=== PATIENT | female | born 1975 | race Caucasian/White ===

== ENCOUNTER → 2018-03-19 | Outpatient (CLI) | payer BC | LOC: MC.RAD 10:23 | DX: Z12.31 Encounter for screening mammogram for malignant neoplasm of breast (principal); N64.89 Other specified disorders of breast ==

== ENCOUNTER → 2018-03-24 | Outpatient (CLI) | payer BC | LOC: MC.RAD 07:29 | DX: N64.89 Other specified disorders of breast (principal) | CPT/HCPCS: G0279 ==

== ENCOUNTER → 2018-08-07 | Outpatient (CLI) | payer BC | LOC: COL.RAD 12:07 | DX: K63.89 Other specified diseases of intestine (principal); M46.96 Unspecified inflammatory spondylopathy, lumbar region; M47.817 Spondylosis without myelopathy or radiculopathy, lumbosacral region; N20.0 Calculus of kidney; Z90.49 Acquired absence of other specified parts of digestive tract | CPT/HCPCS: Q9967 ==

== ENCOUNTER 2020-05-01 06:51 | Emergency (ER) | payer OTHER, BC ==
[~2020-05-01] VITALS: Ht 162.6 cm; Wt 136.4 kg
[2020-05-01 06:54] VITALS: TEMP 97.2
[2020-05-01] MEDS ORDERED: NORCO 325 MG-51 TAB PO (08:08)
[2020-05-01] MEDS ORDERED: MEDROL 4MG DOSPA4 MG PO (08:10)
[2020-05-01 08:15] VITALS: BP 143/85; PULSE 83
== END 2020-05-01 08:19 | disposition home or self-care (01) ==
LOC: COL.ER 06:51
DX: M54.16 Radiculopathy, lumbar region (principal); Z88.0 Allergy status to penicillin; Z88.6 Allergy status to analgesic agent
CPT/HCPCS: J1885; J2360

== ENCOUNTER 2021-08-13 05:31 | Emergency (ER) | payer BC ==
[~2021-08-13] VITALS: Ht 162.6 cm; Wt 136.4 kg
[~2021-08-13 05:31] MED LIST: MEDROL 4MG DOSPA4 MG PO; NORCO 325 MG-51 TAB PO
[2021-08-13 05:43] LABS: COLLECTION METHOD CLEAN CATCH
[2021-08-13 05:50] VITALS: BP 122/118
[2021-08-13] MEDS ORDERED: ROBAXIN 75750 MG/TAB PO (05:50)
[2021-08-13] MEDS ORDERED: MEDROL 4MG DOSPA4 MG PO (05:50)
[2021-08-13 06:00] LABS: PH 5 (5-8); SQUAMOUS EPITHELIAL 0-2 /hpf (0-10); URINE APPEARANCE Clear (CLEAR/HAZY); URINE BACTERIA Rare /hpf (NONE SEEN); URINE BILIRUBIN Negative (NEGATIVE); URINE BLOOD Negative (NEGATIVE); URINE COLOR Yellow (YELLOW); URINE GLUCOSE Negative (NEGATIVE); URINE KETONE Negative (NEGATIVE); URINE LEUKOCYTE ESTERASE Negative (NEGATIVE); URINE NITRATE Negative (NEGATIVE); URINE PROTEIN(semi-quant) Negative (NEGATIVE); URINE RBC 0-2 /hpf (0-2); URINE UROBILINOGEN Negative (NEGATIVE)
[2021-08-13 06:30] VITALS: PULSE 90
== END 2021-08-13 06:30 | disposition home or self-care (01) ==
LOC: COL.ER 05:31
PROVIDERS: Emergency Medicine
DX: M54.16 Radiculopathy, lumbar region (principal); G89.29 Other chronic pain; Z32.02 Encounter for pregnancy test, result negative
CPT/HCPCS: J1885

== ENCOUNTER 2022-07-16 07:35 | Outpatient (CLI) | payer BC ==
[2022-07-16] VITALS (7 sets, daily range): BP systolic 153–167; BP diastolic 95–121; PULSE 71–80; TEMP 98–98.5
[~2022-07-16] VITALS: Ht 162.6 cm; Wt 133.4 kg
[~2022-07-16 07:35] MED LIST changes: +AZULFIDINE500 MG/TAB PO; +FLEXERIL 1010 MG/TAB PO; +FOLIC ACID 11 MG/TA1 PO; +HCTZ12.5TAB PO; +METHOTREXA2.5 MG/TAB PO; +PRIL40 PO; +PROZAC 10MG10 MG PO; +RELAFEN 50500 MG/TAB PO; +ROBAXIN 75750 MG/TAB PO; +SINGULAIR 110 MG/TAB PO; +SYNTHROID0.112 MG/T PO; +TOPROL XL 50MG50 MG PO; +VITAMIND3 5000 PO
[2022-07-16 08:19] LABS: BASO % 0.5 % (0.0-2.0); EOS % 0.8 % (0.0-4.0); GRAN # 1.7 K/mm3 (1.4-6.5); GRAN % 45.4 % (42.2-75.2); HEMOGLOBIN 12.5 g/dl (12.5-16.0); LYMPH # 1.7 K/mm3 (1.2-3.4); LYMPH % 44.1 % (20.0-51.0); MEAN CELL VOLUME 86 fl (80.0-100.0); MEAN CORPUSCULAR HEMOGLOBIN 28 pg (27-31); MEAN CORPUSCULAR HGB CONC 33 g/dl (33.0-37.0); MEAN PLATELET VOLUME 9.6 fl (7.4-10.4); MONO # 0.3 K/mm3 (0.1-0.6); MONO % 8.9 % (1.7-9.3); PLATELET COUNT 244 K/mm3 (130-400); RED BLOOD COUNT 4.44 M/mm3 (4.10-5.30); REDCELL DISTRIBUTION WIDTH-CV 14.9 % (11.5-14.5)
[2022-07-16] MEDS ORDERED: INFLECTRA100 MG IV (11:18)
--- NOTE | 2022-07-16 11:23 | NUR ---
Pt tolerated infusion well. She is aware of elevated blood pressure readings throughout her time in [place]. She states she is monitoring with PCP. IV DC'd, site wrapped with coban. She exits dept with steady gait.
== END 2022-07-16 11:24 | disposition home or self-care (01) ==
LOC: EUO 07:35
PROVIDERS: Student in an Organized Health Care Education/Training Program
DX: M05.79 Rheumatoid arthritis with rheumatoid factor of multiple sites without organ or systems involvement (principal)
CPT/HCPCS: J1200; J2930; J7050; Q5103

== ENCOUNTER 2023-05-02 12:44 | Outpatient (CLI) | payer OTHER ==
[~2023-05-02 12:44] MED LIST changes: +INFLECTRA100 MG IV
[2023-05-02 13:10] LABS: BASO % 0.7 % (0.0-2.0); EOS % 0.9 % (0.0-4.0); GRAN # 2.3 K/mm3 (1.4-6.5); GRAN % 51.8 % (42.2-75.2); HEMATOCRIT 39.6 % (37.0-47.0); HEMOGLOBIN 13.1 g/dl (12.5-16.0); LYMPH # 1.4 K/mm3 (1.2-3.4); LYMPH % 31.7 % (20.0-51.0); MEAN CELL VOLUME 84 fl (80.0-100.0); MEAN CORPUSCULAR HEMOGLOBIN 28 pg (27-31); MEAN CORPUSCULAR HGB CONC 33 g/dl (33.0-37.0); MEAN PLATELET VOLUME 9.3 fl (7.4-10.4); MONO # 0.7 K/mm3 (0.1-0.6); MONO % 14.7 % (1.7-9.3); PLATELET COUNT 264 K/mm3 (130-400); RED BLOOD COUNT 4.69 M/mm3 (4.10-5.30); REDCELL DISTRIBUTION WIDTH-CV 16.2 % (11.5-14.5)
[2023-05-02 13:33] LABS: ALBUMIN 3.9 gm/dL (3.5-5.0); BILIRUBIN,TOTAL 0.3 mg/dL (0.2-1.2); C-REACTIVE PROTEIN 2.04 mg/dL (0.00-0.50); CALCIUM 9.9 mg/dL (8.4-10.2); CREATININE, serum 0.93 mg/dL (0.57-1.11); POTASSIUM 3.9 mmol/L (3.5-4.5)
[2023-05-02 13:43] LABS: ERYTHROCYTE SEDIMENTATION RATE 29 mm/hr (0-20)
[2023-05-02 13:53] LABS: BILIRUBIN,DIRECT 0.1 mg/dL (0.0-0.5)
[2023-05-02 14:02] VITALS: BP 139/84; PULSE 83; TEMP 99
[2023-05-02] MEDS ORDERED: Loratadine 10 MG TAB PO ONE (14:30)
[2023-05-02] MEDS ORDERED: methylPREDNISolone Sod Succ 125 MG/2 ML VIAL IV ONE (14:30)
[2023-05-02] MEDS ORDERED: Acetaminophen 325 MG TAB PO ONE (14:30)
[2023-05-02] MEDS ORDERED: NS IV ONE (15:00)
[2023-05-02] MEDS ORDERED: INFLIXIMAB DYYB IV ONE (15:00)
[2023-05-02 15:30] VITALS: BP 140/87; PULSE 78
[2023-05-02 16:00] VITALS: BP 155/90; PULSE 84
[2023-05-02 16:30] VITALS: BP 159/88; PULSE 83
[2023-05-02 17:00] VITALS: BP 143/86; PULSE 86; TEMP 99.2
--- NOTE | 2023-05-02 17:05 | NUR ---
Report given to EFE Cody who will take over monitoring of pt during completion of infusion. Pt has tolerated well to this point, and remains free of complaints. Ice chips provided per pt request. Call light in reach. She denies further needs at this time.
[2023-05-02 17:20] VITALS: BP 150/97; PULSE 74
== END 2023-05-02 17:27 | disposition home or self-care (01) ==
LOC: EUO 12:44
PROVIDERS: Family Medicine
DX: M05.79 Rheumatoid arthritis with rheumatoid factor of multiple sites without organ or systems involvement (principal)
CPT/HCPCS: J2930; J7050; Q5103

== ENCOUNTER 2023-12-05 11:09 | Outpatient (CLI) | payer OTHER ==
[~2023-12-05] VITALS: Ht 162.6 cm; Wt 129.0 kg
[~2023-12-05 11:09] MED LIST changes: +DESYREL 100MG100 MG PO
[2023-12-05 12:21] VITALS: BP 163/100; PULSE 72; TEMP 98.7
[2023-12-05 12:37] LABS: BASO % 0.2 % (0.0-2.0); GRAN # 4.3 K/mm3 (1.4-6.5); GRAN % 79.8 % (42.2-75.2); HEMOGLOBIN 11.9 g/dl (12.5-16.0); LYMPH # 0.7 K/mm3 (1.2-3.4); LYMPH % 13.6 % (20.0-51.0); MEAN CELL VOLUME 85 fl (80.0-100.0); MEAN CORPUSCULAR HEMOGLOBIN 28 pg (27-31); MEAN CORPUSCULAR HGB CONC 33 g/dl (33.0-37.0); MEAN PLATELET VOLUME 9.2 fl (7.4-10.4); MONO # 0.3 K/mm3 (0.1-0.6); MONO % 5.8 % (1.7-9.3); PLATELET COUNT 218 K/mm3 (130-400); RED BLOOD COUNT 4.22 M/mm3 (4.10-5.30); REDCELL DISTRIBUTION WIDTH-CV 14.6 % (11.5-14.5)
[2023-12-05 12:42] LABS: ERYTHROCYTE SEDIMENTATION RATE 42 mm/hr (0-20)
[2023-12-05 12:54] LABS: ALBUMIN 3.8 g/dL (3.5-5.0); BILIRUBIN,TOTAL 0.4 mg/dL (0.2-1.2); C-REACTIVE PROTEIN 2.47 mg/dL (0.00-0.50); CALCIUM 9.5 mg/dL (8.4-10.2); TOTAL PROTEIN 7.9 g/dl (6.2-8.1)
[2023-12-05] MEDS ORDERED: methylPREDNISolone Sod Succ 40 MG/ML VIAL IV ONE (13:00)
[2023-12-05] MEDS ORDERED: Loratadine 10 MG TAB PO ONE (13:00)
[2023-12-05] MEDS ORDERED: Acetaminophen 325 MG TAB PO ONE (13:00)
[2023-12-05 13:24] VITALS: BP 165/97; PULSE 67
[2023-12-05] MEDS ORDERED: NS IV ONE (13:30)
[2023-12-05] MEDS ORDERED: INFLIXIMAB DYYB IV ONE (13:30)
[2023-12-05 13:46] LABS: BILIRUBIN,DIRECT 0.2 mg/dL (0.0-0.5)
[2023-12-05 13:54] VITALS: BP 141/94; PULSE 67
[2023-12-05 14:24] VITALS: BP 149/105; PULSE 66
[2023-12-05 14:54] VITALS: BP 161/109; PULSE 65
== END 2023-12-05 15:26 | disposition home or self-care (01) ==
LOC: EUO 11:09
PROVIDERS: Family Medicine
DX: M05.79 Rheumatoid arthritis with rheumatoid factor of multiple sites without organ or systems involvement (principal)
CPT/HCPCS: J2919; J7050; Q5103

== ENCOUNTER 2024-01-20 12:55 | Outpatient (CLI) | payer OTHER ==
[~2024-01-20] VITALS: Ht 162.6 cm; Wt 130.0 kg
[2024-01-20] VITALS (8 sets, daily range): BP systolic 140–176; BP diastolic 92–113; PULSE 63–72; TEMP 98.9
[2024-01-20 13:32] LABS: BASO % 0.3 % (0.0-2.0); EOS # 0.1 K/mm3 (0.0-0.7); EOS % 1.1 % (0.0-4.0); GRAN # 4.8 K/mm3 (1.4-6.5); GRAN % 73.1 % (42.2-75.2); HEMOGLOBIN 12.2 g/dl (12.5-16.0); LYMPH # 1.2 K/mm3 (1.2-3.4); LYMPH % 18.4 % (20.0-51.0); MEAN CELL VOLUME 84 fl (80.0-100.0); MEAN CORPUSCULAR HEMOGLOBIN 29 pg (27-31); MEAN CORPUSCULAR HGB CONC 34 g/dl (33.0-37.0); MEAN PLATELET VOLUME 8.9 fl (7.4-10.4); MONO # 0.4 K/mm3 (0.1-0.6); MONO % 6.5 % (1.7-9.3); PLATELET COUNT 271 K/mm3 (130-400); RED BLOOD COUNT 4.27 M/mm3 (4.10-5.30)
[2024-01-20 13:34] LABS: HEMATOCRIT 35.9 % (37.0-47.0)
[2024-01-20 13:47] LABS: ALBUMIN 3.5 g/dL (3.5-5.0); BILIRUBIN,TOTAL 0.3 mg/dL (0.2-1.2); C-REACTIVE PROTEIN 1.31 mg/dL (0.00-0.50); CALCIUM 9.3 mg/dL (8.4-10.2); CREATININE, serum 0.94 mg/dL (0.57-1.11); POTASSIUM 4.4 mEq/L (3.5-4.5); TOTAL PROTEIN 7.1 g/dl (6.2-8.1)
[2024-01-20 13:52] LABS: ERYTHROCYTE SEDIMENTATION RATE 23 mm/hr (0-20)
[2024-01-20] MEDS ORDERED: Acetaminophen 325 MG TAB PO ONE (14:00)
[2024-01-20] MEDS ORDERED: methylPREDNISolone Sod Succ 125 MG/2 ML VIAL IV ONE (14:00)
[2024-01-20] MEDS ORDERED: Loratadine 10 MG TAB PO ONE (14:00)
[2024-01-20] MEDS ORDERED: NS IV ONE (14:30)
[2024-01-20] MEDS ORDERED: INFLIXIMAB DYYB IV ONE (14:30)
--- NOTE | 2024-01-20 16:50 | NUR ---
Pt tolerated infusion without issue. IV DC'd, site wrapped with coban. She exits dept with steady gait. Free of complaints at discharge.
== END 2024-01-20 16:50 | disposition home or self-care (01) ==
LOC: EUO 12:55
DX: M05.79 Rheumatoid arthritis with rheumatoid factor of multiple sites without organ or systems involvement (principal); M13.0 Polyarthritis, unspecified; Z79.899 Other long term (current) drug therapy; Z79.1 Long term (current) use of non-steroidal anti-inflammatories (NSAID); R20.0 Anesthesia of skin; D64.9 Anemia, unspecified; E66.9 Obesity, unspecified; R60.9 Edema, unspecified
CPT/HCPCS: J2919; J7050; Q5103

== ENCOUNTER 2024-02-08 07:09 | Emergency (ER) | payer OTHER ==
[~2024-02-08] VITALS: Ht 162.6 cm; Wt 136.4 kg
[2024-02-08 07:33] VITALS: TEMP 100
[2024-02-08] MEDS ORDERED: Acetaminophen 500 MG TAB PO ONE (07:41)
[2024-02-08 08:13] LABS: COLLECTION METHOD CLEAN CATCH
[2024-02-08 08:22] LABS: PH 5.5 (5.0-8.5); URINE APPEARANCE CLOUDY (CLEAR/HAZY); URINE BLOOD NEGATIVE (NEGATIVE); URINE COLOR Dark Yellow (YELLOW); URINE GLUCOSE NEGATIVE (NEGATIVE); URINE KETONE 1+ (NEGATIVE); URINE NITRATE NEGATIVE (NEGATIVE); URINE PROTEIN(semi-quant) 2+ (NEGATIVE)
[2024-02-08 08:35] LABS: MUCOUS PRESENT (NOT PRESENT); URINE BACTERIA MODERATE /hpf (NONE SEEN)
[2024-02-08] MEDS ORDERED: Ondansetron 4 MG/2 ML VIAL IV ONE (08:45)
[2024-02-08] MEDS ORDERED: Morphine 4 MG/ML VIAL IV ONE (08:45)
[2024-02-08] MEDS ORDERED: NS 1,000 ML IV ONE (08:45)
[2024-02-08 08:52] LABS: HEMATOCRIT 42.7 % (37.0-47.0); HEMOGLOBIN 14.5 g/dl (12.5-16.0); MEAN CELL VOLUME 84 fl (80.0-100.0); MEAN CORPUSCULAR HEMOGLOBIN 28 pg (27-31); MEAN CORPUSCULAR HGB CONC 34 g/dl (33.0-37.0); MEAN PLATELET VOLUME 10.5 fl (7.4-10.4); PLATELET COUNT 115 K/mm3 (130-400); RED BLOOD COUNT 5.11 M/mm3 (4.10-5.30); REDCELL DISTRIBUTION WIDTH-CV 14.7 % (11.5-14.5)
[2024-02-08 09:16] LABS: ALBUMIN 3.7 g/dL (3.5-5.0); BILIRUBIN,TOTAL 0.5 mg/dL (0.2-1.2); C-REACTIVE PROTEIN 15.88 mg/dL (0.00-0.50); CALCIUM 9.3 mg/dL (8.4-10.2); CREATININE, serum 1.23 mg/dL (0.57-1.11); MAGNESIUM 1.7 mg/dL (1.6-2.6); POTASSIUM 3.6 mEq/L (3.5-4.5)
[2024-02-08 09:25] LABS: BAND 9 % (0-10); PLATELET ESTIMATE DECREASED (NORMAL)
[2024-02-08 09:26] LABS: NEUTROPHILS 44 % (42.0-75.2)
[2024-02-08 09:27] LABS: EOSINOPHIL 1 % (0-4)
[2024-02-08 09:30] LABS: LYMPHOCYTE 40 % (20.0-51.0)
[2024-02-08] MEDS ORDERED: NS 100 ML IV SCH (10:17)
[2024-02-08] MEDS ORDERED: Iohexol 300 - 100 ML VIAL IV ONE (10:18)
[2024-02-08] MEDS ORDERED: BENTYL 20MG20 MG/TAB PO (12:41)
[2024-02-08] MEDS ORDERED: ZOFRAN ODT4 MG PO (12:41)
[2024-02-08] MEDS ORDERED: ROXICODONE 55 MG/TAB PO (12:41)
[2024-02-08 12:56] VITALS: BP 116/77; PULSE 96
== END 2024-02-08 13:02 | disposition home or self-care (01) ==
LOC: COL.ER 07:09
PROVIDERS: Emergency Medicine
DX: B34.9 Viral infection, unspecified (principal); Z20.822 Contact with and (suspected) exposure to COVID-19
CPT/HCPCS: J2270; J2405; J7030; Q9967